=== PATIENT | male | born 1950 | race Caucasian/White ===

== ENCOUNTER → 2022-01-22 | Outpatient (CLI) | payer MEDICARE ==
[~2022-01-22] MED LIST: ATOR10TA60 PO; GADOTERATE 7.5 MMOL/15ML VIAL. IVP ONE
--- NOTE | 2022-01-23 09:16 | KCIC ---
MRI of thoracic spine without and with contrast Contrast: 14 mL Clariscan gadolinium intravenous contrast. HISTORY: Left-sided chest pain. Remote history of treated small cell lung cancer in 2008 at 2008. Comparison: CT chest August 21, 2021 FINDINGS: Imaged cervical spine on the sagittal localizer T2-weighted sequence demonstrates degenerat schuyler disc disease with disc height loss and bulky disc osteophytes and suspected spinal canal stenosis at several levels. Thoracic spine demonstrates intact vertebral height and alignment. There is very mild discogenic bony edema along the T11 vertebra adjacent to the inferior endplate. Diffuse degenera tive disc desiccation and disc height loss throughout the thoracic spine. There is facet arthrosis wi th spurring throughout the thoracic spine as well. Conus terminates at the L1 lumbar vertebral level. Renal cystic lesions are noted. Disc disease and facet arthrosis described below. C7-T1: Slight anterolisthesis of C7 on 3 mm associated facet arthritis with bony spurring contributin g to mild neural foraminal stenoses. T1-T2: Facet spurring. At the dorsal epidural spinal canal at the midline and extending slightly left of midline is a cystic mass with faint thin peripheral incomplete enhancement, this mass measures 13 mm transverse by 7 mm AP by 15 mm craniocaudal there is a small intracystic hypointense focus within the lesion, this contributes to markedly severe spinal canal stenosis the mass compressing and marke dly deforming the spinal cord against the posterior vertebral body, the spinal cord compressed to a d iameter of 2.5 mm. No cord edema or syrinx evident. 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 Arachnoid cyst is a secondary consideration. T2-T3 through T5-T6: No spinal canal or neural foraminal stenosis. T6-T7: Disc bulge with left paracentral focal disc protrusion and facet spurring. Mild neural foramin al stenoses. There is narrowing left lateral recess and pwtz-ky-duzndhhi spinal canal stenosis dural sac diameter is 8.5 mm at the midline. T7-T8: Disc bulge with right paracentral disc protrusion liya the ventral dural sac, mild spinal c anal stenosis dural sac diameter is 10 mm. T8-T9: Mild disc bulge mildly deforms the ventral dural sac. No spinal canal or neural foraminal sten osis. T9-T10: Disc height loss and disc bulge. Facet spurring. Mild to moderate neural foraminal stenoses. Mild spinal canal stenosis dural sac diameter is 10 mm. T10-T11: Disc height loss and disc bulge. Facet hypertrophy and spurring. Mild narrowing of the later al recesses. Mild spinal canal stenosis dural sac diameter is 9 mm. Moderate neural foraminal stenose s. T11-T12: Disc height loss and right eccentric disc bulge. Facet hypertrophy and spurring. Moderate ri ght neural foraminal stenosis. Left neural foramen patent. No spinal canal stenosis dural sac diamete r 11 mm. T12-L1: Right paracentral focal disc protrusion deforms the ventral dural sac. No spinal canal or lat eral recess stenosis. Neural foramina are patent. IMPRESSION: 1. At T1-T2 there is a dorsal epidural spinal canal cystic mass adjacent of which is facet arthrosis with prominent bony spurs. This cystic mass results in severe spinal canal stenosis with compression and marked deformity of the thoracic spinal cord compressing the spinal cord to a diameter of 2.5 mm. 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 An arachnoid cyst woul d be a secondary consideration. There is a small intracystic hypointense nodule present however there is no contrast enhancement of this to suggest a cystic neoplasm. Given the significant compression a nd deformity of the spinal cord by this cystic mass increases the patient's risk for spinal cord inju ry. 2. Thoracic degenerative disc disease and facet arthrosis with spinal canal and neural foraminal sten oses at several levels as described above. FOR INTERNAL CODING PURPOSES Critical result: Findings discussed with FRANKLIN MOHAMUD MD's in office nurse Denae Renee at 01/23/2022 9:05 A M. Read back of the report was performed. The nurse is notified and the treating physician of these r esults immediately. RESULT CODE: (C) Electronically signed by: Donavan Fry MD (01/23/2022 9:13 AM) [facility]
== END ==
LOC: KCIC MRI 14:07
PROVIDERS: ATTEND Internal Medicine Pulmonary Disease
DX: M47.814 Spondylosis without myelopathy or radiculopathy, thoracic region (principal); G95.89 Other specified diseases of spinal cord; M51.34 Other intervertebral disc degeneration, thoracic region; M48.04 Spinal stenosis, thoracic region; N28.89 Other specified disorders of kidney and ureter; M46.04 Spinal enthesopathy, thoracic region; M47.894 Other spondylosis, thoracic region; M51.24 Other intervertebral disc displacement, thoracic region; Z85.9 Personal history of malignant neoplasm, unspecified
CPT/HCPCS: 72157; 82565; A9575